=== PATIENT | male | born 1985 | race American Indian/Alaskan Native ===

== ENCOUNTER 2017-11-17 12:02 | Emergency (ER) | payer OTHER ==
[2017-11-17 12:23] VITALS: RESP 18; TEMP 98.1; BMI 37.6
[2017-11-17] MEDS: Sodium Chloride 0.9% 1,000 ML IV STA ×2 (12:43→14:54)
--- NOTE | 2017-11-17 12:47 | RAD ---
Date of service: 11/17/2017 HISTORY: Abdominal pain COMPARISON: No prior. FINDINGS: LUNGS: The lungs are well inflated and clear. PLEURA: No significant pleural effusion identified, no pneumothorax apparent. CARDIOVASCULAR: Normal. OSSEOUS STRUCTURES: Within normal limits for the patient's age. VISUALIZED UPPER ABDOMEN: Normal. OTHER FINDINGS: None. IMPRESSION: No active pulmonary disease.
[2017-11-17 12:51] VITALS: O2SAT 100
[2017-11-17 13:09] LABS: GRAN # 12.52 (1.4-6.5); GRAN % 77.4 % (50.0-68.0); LYMPH # 1.9 (1.2-3.4); LYMPH % 11.9 % (22.0-35.0); MEAN CELL VOLUME 86.3 fl (80.0-105.0); MEAN CORPUSCULAR HGB CONC 35.9 g/dl (31.0-37.0); MEAN PLATELET VOLUME 10.6 fl (7.0-11.0); MONO # 1.7 (0.1-0.6); MONO % 10.7 % (1.0-6.0); RBC 5.49 10^6/uL (3.5-6.1); RED CELL DISTRIBUTION WIDTH 14.2 % (11.5-14.5); WHITE BLOOD COUNT 16.2 10^3/ul (4.5-11.0)
[2017-11-17 13:15] LABS: INR 1.11; PARTIAL THROMBOPLASTIN TIME 30.7 Seconds (25.1-36.5); PROTHROMBIN TIME 12.7 SECONDS (9.4-12.5)
[2017-11-17 13:19] LABS: ALB/GLOB RATIO 1.3 (1.1-1.8); ALBUMIN 5.3 g/dL (3.0-4.8); ALT/SGPT 43 U/L (7-56); AST/SGOT 41 U/L (17-59); BLOOD UREA NITROGEN 19 mg/dL (7-21); CALCIUM 10.6 mg/dL (8.4-10.5); GFR AFRICAN-AMERICAN > 60; GFR NON-AFRICAN AMERICAN > 60; LIPASE 24 U/L (23-300)
[2017-11-17 13:32] LABS: URINE APPEARANCE TURBID (CLEAR); URINE BILIRUBIN NEGATIVE (NEGATIVE); URINE BLOOD MODERATE (NEGATIVE); URINE COLOR YELLOW (YELLOW); URINE GLUCOSE (UA) NEGATIVE (NEGATIVE); URINE LEUKOCYTE ESTERASE NEGATIVE Leu/uL (NEGATIVE); URINE PROTEIN 100 mg/dL (<30 mg/dL); URINE UROBILINOGEN 0.2 E.U./dL (<1 E.U./dL)
[2017-11-17 13:42] LABS: URINE RED BLOOD CELL CAST 0-1 /hpf; URINE WBC NEGATIVE /hpf (0-6)
--- NOTE | 2017-11-17 14:23 | ED PDOC ---
Arrival/HPI - General Chief Complaint: GI Problem Time Seen by Provider: 11/17/17 12:28 Historian: Patient - History of Present Illness Narrative History of Present Illness (Text): 11/17/17 14:20 32yr old male presents today with epigastric and mid abdominal pain since this morning at 10am. pt states that he suddenly developed pain with vomiting. pt states he noticed occasional spot of blood in his vomitus on the 6th time vomiting. pt denies cp or sob. no back pain. pt denies fever/chills. no dizziness or weakness. Past Medical History - Provider Review Nursing Documentation Reviewed: Yes - Travel History Have you recently traveled outside [place] w/in the past 3 mons?: No - Infectious Disease Hx of Infectious Diseases: None - Tetanus Immunization Tetanus Immunization: Unknown - Psychiatric Hx Depression: No Hx Emotional Abuse: No Hx Physical Abuse: No Hx Substance Use: Yes - Surgical History Hx Orthopedic Surgery: Yes - Suicidal Assessment Feels Threatened In Home Enviroment: No Family/Social History - Physician Review Nursing Documentation Reviewed: Yes Family/Social History: Unknown Family HX Smoking Status: Heavy Smoker > 10 Cigarettes Daily Hx Alcohol Use: Yes Frequency of alcohol use: Few days per week Hx Substance Use: Yes Substance used: marijuana Hx Substance Use Treatment: Yes Allergies/Home Meds Allergies/Adverse Reactions: Allergies No Known Allergies Allergy (Verified 11/17/17 12:22) Home Medications: Home Meds Medication Instructions Recorded Confirmed Acetaminophen/Oxycodone Hydr 1 tab PO Q4 PRN 06/04/13 06/04/13 [APAP/Oxycodone 325 mg-5 mg] Cephalexin 500 mg PO BID 06/04/13 06/04/13 Review of Systems - Review of Systems Constitutional: absent: Fatigue, Fevers Respiratory: absent: SOB, Cough Cardiovascular: absent: Chest Pain, Palpitations Gastrointestinal: Abdominal Pain, Nausea, Vomiting. absent: Constipation, Diarrhea Genitourinary Male: absent: Dysuria, Frequency, Hematuria Musculoskeletal: absent: Arthralgias, Back Pain, Neck Pain Skin: absent: Rash, Pruritis Neurological: absent: Headache, Dizziness Psychiatric: absent: Anxiety, Depression, Suicidal Ideation Physical Exam Vital Signs Reviewed: Yes Vital Signs Temp Pulse Resp BP Pulse Ox 11/17/17 18:40 85 18 111/47 L 100 11/17/17 16:00 82 18 118/65 100 11/17/17 14:29 89 18 121/61 100 11/17/17 12:49 96 H 18 119/50 L 100 11/17/17 12:23 98.1 F 118 H 18 134/101 H 99 11/17/17 12:22 98.1 F 118 H 18 134/101 H 99 Temperature: Afebrile Blood Pressure: Hypertensive Pulse: Tachycardic Respiratory Rate: Normal Appearance: Positive for: Well-Appearing, Non-Toxic, Uncomfortable Pain Distress: None Mental Status: Positive for: Alert and Oriented X 3 - Systems Exam Head: Present: Atraumatic Mouth: Present: Moist Mucous Membranes Neck: Present: Normal Range of Motion Respiratory/Chest: Present: Clear to Auscultation, Good Air Exchange. No: Respiratory Distress, Accessory Muscle Use Cardiovascular: Present: Regular Rate and Rhythm, Normal S1, S2. No: Murmurs Abdomen: Present: Tenderness (+ epigastric and mid abd tenderness), Normal Bowel Sounds. No: Distention, Peritoneal Signs, Rebound, Guarding, McBurney's Point Tender Back: Present: Normal Inspection. No: CVA Tenderness, Midline Tenderness, Paraspinal Tenderness Upper Extremity: Present: Normal ROM Lower Extremity: Present: Normal ROM Neurological: Present: GCS=15, Speech Normal Skin: Present: Warm, Dry, Normal Color. No: Rashes Psychiatric: Present: Alert, Oriented x 3 Medical Decision Making ED Course and Treatment: 11/17/17 18:40 Patient is nontoxic, presenting with vomiting and abdominal pain after dose of zofran and fluids. vitals improved. CBC wbc; 16.3 CMP wnl Lipase wnl Urinalysis + blood pt with continued vomiting. reglan added cxr; wnl pt reassessment; pt c/o nausea and vomited again; 2nd dose zofran added. no blood noted in vomitus CAT scan: FINDINGS: LOWER THORAX: Unremarkable. LIVER: Unremarkable. No gross lesion or ductal dilatation. Fatty infiltration of the liver GALLBLADDER AND BILE DUCTS: Unremarkable. PANCREAS: Unremarkable. No gross lesion or ductal dilatation. SPLEEN: Unremarkable. ADRENALS: Unremarkable. No mass. KIDNEYS AND URETERS: Unremarkable. No hydronephrosis. No solid mass. VASCULATURE: Unremarkable. No aortic aneurysm. BOWEL: Unremarkable. No obstruction. No gross mural thickening. APPENDIX: Normal appendix. PERITONEUM: Unremarkable. No free fluid. No free air. LYMPH NODES: Unremarkable. No enlarged lymph nodes. BLADDER: Unremarkable. REPRODUCTIVE: Unremarkable. BONES: No acute fracture. OTHER FINDINGS: None. IMPRESSION: No acute intra-abdominal findings Patient reassessment:pt feeling better after medications; pt denies any pain; drinking water in er.no vomiting. denies any complaints. wants to go home. taking and laughing on cell phone. abdomen is non tender. Discussed all results with patient in depth. Advised follow-up with the GI specialist and urologist for hematuria. Advised immediate return if symptoms worsen persist or if new concerning symptoms develop. Patient verbalizes understanding of discharge instructions and need for immediate followup. all aspects of this case were discussed the attending of record. Impression: Abdominal pain, vomiting, hematuria Pepcid one tablet daily Increase fluids Follow up with the GI specialist within the next 2 days. Follow up with primary care physician within the next 2 days Return immediately if symptoms worsen persist or if new symptoms develop: High fevers, increasing pain, vomiting, diarrhea or any other concerning symptoms develop 11/17/17 22:12 Reassessment Condition: Re-examined, Improved - Lab Interpretations Lab Results: 11/17/17 12:20 11/17/17 12:20 Lab Results 11/17/17 13:20: Urine Color Yellow, Urine Appearance Turbid, Urine pH 6.0, Ur Specific Clarinda >= 1.030, Urine Protein 100 H, Urine Glucose (UA) Negative, Urine Ketones Trace H, Urine Blood Moderate H, Urine Nitrate Negative, Urine Bilirubin Negative, Urine Urobilinogen 0.2, Ur Leukocyte Esterase Negative, Urine RBC 5 - 10, Urine WBC Negative, RBC Casts 0-1 11/17/17 12:20: PT 12.7 H, INR 1.11, APTT 30.7 11/17/17 12:20: WBC 16.2 H, RBC 5.49, Hgb 17.0, Hct 47.4, MCV 86.3, MCH 31.0, MCHC 35.9, RDW 14.2, Plt Count 255, MPV 10.6, Gran % 77.4 H, Lymph % (Auto) 11.9 L, Charlton % (Auto) 10.7 H, Eos % (Auto) 0.0 L, Baso % (Auto) 0.0, Gran # 12.52 H, Lymph # (Auto) 1.9, Charlton # (Auto) 1.7 H, Eos # (Auto) 0.0, Baso # (Auto ) 0.00 11/17/17 12:20: Sodium 143, Potassium 3.7, Chloride 98, Carbon Dioxide 28, Anion Gap 21 H, BUN 19, Creatinine 1.2, Est GFR ( Amer) > 60, Est GFR ( Non-Af Amer) > 60, Random Glucose 136 H, Calcium 10.6 H, Total Bilirubin 0.6, AST 41, ALT 43, Alkaline Phosphatase 50, Total Protein 9.4 H, Albumin 5.3 H, Globulin 4.0, Albumin/Globulin Ratio 1.3, Lipase 24 - RAD Interpretation Radiology Orders: 11/17/17 12:30 CHEST PORTABLE [RAD] Stat 11/17/17 12:31 ABD & PELVIS IV CONTRAST ONLY [CT] Stat - Medication Orders Current Medication Orders: Discontinued Medications Sodium Chloride (Sodium Chloride 0.9%) 1,000 mls @ 999 mls/hr IV .Q1H1M STA Stop: 11/17/17 13:30 Last Admin: 11/17/17 14:54 Dose: 999 mls/hr eMAR Start Stop Document 11/17/17 14:54 SF (Rec: 11/17/17 14:54 SF [id number]) Intravenous Solution Start Date 11/17/17 Start Time 14:54 End Date 11/17/17 End time 15:55 Total Infusion Time 61 Sodium Chloride (Sodium Chloride 0.9%) 1,000 mls @ 999 mls/hr IV .Q1H1M STA Stop: 11/17/17 16:04 Last Admin: 11/17/17 15:10 Dose: Metoclopramide HCl (Reglan) 10 mg IVP STAT STA Stop: 11/17/17 14:23 Last Admin: 11/17/17 14:53 Dose: 10 mg IVP Administration Document 11/17/17 14:53 SF (Rec: 11/17/17 14:53 SF [id number]) Charges for Administration # of IVP Administrations 1 Ondansetron HCl (Zofran Inj) 4 mg IVP STAT STA Stop: 11/17/17 13:15 Last Admin: 11/17/17 14:53 Dose: Ondansetron HCl (Zofran Inj) 4 mg IVP STAT STA Stop: 11/17/17 15:24 Last Admin: 11/17/17 15:26 Dose: 4 mg IVP Administration Document 11/17/17 15:26 SF (Rec: 11/17/17 15:26 SF [id number]) Charges for Administration # of IVP Administrations 1 Pantoprazole Sodium (Protonix Inj) 40 mg IVP STAT STA Stop: 11/17/17 12:31 Last Admin: 11/17/17 12:44 Dose: 40 mg IVP Administration Document 11/17/17 12:44 SF (Rec: 11/17/17 12:44 SF [id number]) Charges for Administration # of IVP Administrations 1 Disposition/Present on Arrival - Present on Arrival Any Indicators Present on Arrival: No History of DVT/PE: No History of Uncontrolled Diabetes: No Urinary Catheter: No History of Decub. Ulcer: No History Surgical Site Infection Following: None - Disposition Have Diagnosis and Disposition been Completed?: Yes Diagnosis: Abdominal pain, Vomiting, Hematuria Disposition: HOME/ ROUTINE Disposition Time: 18:34 Patient Plan: Discharge Condition: GOOD Discharge Instructions (ExitCare): Acute Abdomen (Belly Pain) Additional Instructions: Pepcid one tablet daily Increase fluids Follow up with the GI specialist within the next 2 days. Follow up with primary care physician within the next 2 days Return immediately if symptoms worsen persist or if new symptoms develop: High fevers, increasing pain, vomiting, diarrhea or any other concerning symptoms develop Prescriptions: Famotidine [Pepcid] 20 mg PO DAILY #30 tab Referrals: Will Cardenas DO [Primary Care Provider] - Follow up with primary Will Mg MD [Staff Provider] - Follow up with primary Sandra Pruitt MD [Staff Provider] - Follow up with primary Forms: [employer] (Swiss), WORK NOTE
[2017-11-17] MEDS ORDERED: Sodium Chloride 0.9% 1,000 ML IV STA (15:04)
--- NOTE | 2017-11-17 15:08 | CT ---
Date of service: 11/17/2017 PROCEDURE: CT Abdomen and Pelvis with contrast HISTORY: abd pain COMPARISON: None. TECHNIQUE: Contrast dose: 150 cc of Omni 350 Radiation dose: Total exam DLP = 1144 mGy-cm. This CT exam was performed using one or more of the following dose reduction techniques: Automated exposure control, adjustment of the mA and/or kV according to patient size, and/or use of iterative reconstruction technique. FINDINGS: LOWER THORAX: Unremarkable. LIVER: Unremarkable. No gross lesion or ductal dilatation. Fatty infiltration of the liver GALLBLADDER AND BILE DUCTS: Unremarkable. PANCREAS: Unremarkable. No gross lesion or ductal dilatation. SPLEEN: Unremarkable. ADRENALS: Unremarkable. No mass. KIDNEYS AND URETERS: Unremarkable. No hydronephrosis. No solid mass. VASCULATURE: Unremarkable. No aortic aneurysm. BOWEL: Unremarkable. No obstruction. No gross mural thickening. APPENDIX: Normal appendix. PERITONEUM: Unremarkable. No free fluid. No free air. LYMPH NODES: Unremarkable. No enlarged lymph nodes. BLADDER: Unremarkable. REPRODUCTIVE: Unremarkable. BONES: No acute fracture. OTHER FINDINGS: None. IMPRESSION: No acute intra-abdominal findings
--- NOTE | 2017-11-17 17:49 | CARD ---
APPROVED REPORT Date of service: 11/17/2017 EKG Measurement Heart [id number] <Conclusion> Sinus tachycardia Otherwise normal ECG
[2017-11-17 18:41] VITALS: BP 111/47; PULSE 85
== END 2017-11-17 18:57 | disposition home or self-care (01) ==
LOC: ED 12:02
DX: R10.13 Epigastric pain (principal); R11.10 Vomiting, unspecified; R31.9 Hematuria, unspecified; F17.210 Nicotine dependence, cigarettes, uncomplicated
CPT/HCPCS: 71045; 74177; 80053; 81001; 83690; 85025; 85610; 85730; 93005; 96361; 96374; 96375; 99285; C9113; J2405; J2765; J7030; Q9967